=== PATIENT | male | born 1960 | race Caucasian/White ===

== ENCOUNTER 2018-03-10 12:49 | Inpatient (IN) | payer OTHER ==
[2018-03-10 12:52] VITALS: BMI 23.3
--- NOTE | 2018-03-10 15:52 | HP ---
CIWA Score Nausea/Vomitin-Mild Nausea/No Vomiting Muscle Tremors: None Anxiety: 3 Agitation: 1-Slight > Activity Paroxysmal Sweats: No Perspiration Orientation: 0-Oriented Tacttile Disturbances: 0-None Auditory Disturbances: 0-None Visual Disturbances: 0-None Headache: 0-None Present CIWA-Ar Total Score: 5 - Admission Criteria OASAS Guidelines: Admission for Medically Managed Detox: Requires at least one of the followin. CIWA greater than 12 2. Seizures within the past 24 hours 3. Delirium tremens within the past 24 hours 4. Hallucinations within the past 24 hours 5. Acute intervention needed for co occurring medical disorder 6. Acute intervention needed for co occurring psychiatric disorder 7. Severe withdrawal that cannot be handled at a lower level of care (continued vomiting, continued diarrhea, abnormal vital signs) requiring intravenous medication and/or fluids 8. Admission ROS [facility] Allergies/Adverse Reactions: Allergies Allergy/AdvReac Type Severity Reaction Status Date / Time No Known Allergies Allergy Verified 03/10/18 14:57 History of Present Illness: i-stop This report was requested by: Rachael Pool | Reference #: [id number] Others' Prescriptions Patient Name: Oscar King Date: 1960 Address: [address] [place] [address] Sex: Male Rx Written Rx Dispensed Drug Quantity Days Supply Prescriber Name 03/29/2017 03/29/2017 hydrocodone-acetaminophen 5-325 mg tablet 30 5 Bradley Becker MD patient here requesting detox from etoh use , illicit suboxone , reports heroin use in late until ,stopped after detox, was in Methadone [facility] in [facility] and in [place] in the early , highest dose 90 mg left program ,went to detox, stopped after ,1 year ago started illicit Suboxone , currently 1-2 x 8 mg/ day approximately 20 films/ month , latest use this morning . Denies OD , past use IVDA in hands , arms , ankles, no abscess cannabis : age 16 , did not continue cocaine : occasional PCP : stopped several years ago etoh : 1/2 pint/day , and 6-pk beer/day since 2 years ago , first age of use teens , never in detox , this is the patient's first inpatient detox attempt , reports tremors if not drinking , reports drinking in the mornings latest this morning , current JUSTIN 0.031 , denies blackouts when drinking , denies falls , denies driving while intoxicated , past DWI 1997 . tonacco : 1 ppd since age 14 -15, requesting nrt w/ gum and patch PMHX : htn PSHx : undescended testicle age 10 Psych : denies Meds : clonidine , lisinopril did not bring - states had rx " a long time ago " was not taking emds and has accumulated a lot of pills which he is taking sporadically . SHX : lives w/ GF , off the [employer] , legal _ denies current issues ; has 30-yr old son A & W , 1 gk 6 mo old Exam Limitations: No Limitations - Ebola screening Have you traveled outside of the country in the last 21 days: No (N) Have you had contact with anyone from an Ebola affected area: No Have you been sick,other than usual withdrawal symptoms: No Do you have a fever: No - Review of Systems Constitutional: See HPI EENT: reports: Other (reading glasses, myopia) Respiratory: reports: No Symptoms reported Cardiac: reports: No Symptoms Reported GI: reports: Other (reporets acid reflux , in the past took Prilosec) : reports: No Symptoms Reported Musculoskeletal: reports: No Symptoms Reported Integumentary: reports: No Symptoms Reported Neuro: reports: Tremors Endocrine: reports: No Symptoms Reported Psychiatric: reports: Orientated x3, Anxious Patient History - Patient Medical History Hx Asthma: No Hx Chronic Obstructive Pulmonary Disease (COPD): No Hx Cardiac Disorders: No Hx Hypertension: Yes Hx Seizures: No Hx Diabetes: No Hx Gastrointestinal Disorders: Yes (acid reflux) Hx Genitourinary Disorders: No Hx Sexually Transmitted Disorders: No Hx Renal Disease (ESRD): No Hx Depression: No Hx Suicide Attempt: No Hx Schizophrenia: No - Patient Surgical History Past Surgical History: Yes Hx Neurologic Surgery: No Hx Cataract Extraction: No Hx Cardiac Surgery: No Hx Lung Surgery: No Hx Breast Surgery: No Hx Breast Biopsy: No Hx Abdominal Surgery: No Hx Appendectomy: No Hx Cholecystectomy: No Hx Genitourinary Surgery: No Hx Section: No Hx Orthopedic Surgery: No Other Surgical History: undescended tested at age 10 Anesthesia Reaction: No - PPD History Previous Implant?: Yes Documented Results: Negative w/proof Implanted On Prior [facility] Admission?: Yes Date: 11/19/11 Results: 0 mm - Smoking Cessation Smoking history: Current every day smoker Aproximately how many cigarettes per day: 20 Hx Chewing Tobacco Use: No Initiated information on smoking cessation: No - Substances Abused Alcohol-vodka/beer Route: Oral Frequency: Daily Amount used: 1/2-1 pt./1-6 pk. Age of first use: 17 Date of Last Use: 03/10/18 Suboxone Route: SL Amount used: 1-2 strips of 8 mg. Age of first use: 56 Date of Last Use: 03/10/18 Family Disease History - Family Disease History Family Disease History: Other: Father (d. prostate CA 87), Mother (d.sepsis 80's ), Brother (A & W ) Admission Physical Exam [facility] - Vital Signs Vital Signs: Vital Signs - 24 hr 03/10/18 12:50 Temperature 97.7 F Pulse Rate 86 Respiratory 20 Rate Blood Pressure 143/88 - Physical General Appearance: Yes: Mild Distress, Anxious HEENTM: Yes: EOMI, Hearing grossly Normal, Normocephalic, Normal Voice, Pharynx Normal Respiratory: Yes: Chest Non-Tender, Lungs Clear, Normal Breath Sounds Neck: Yes: No masses,lesions,Nodules, Trachea in good position Breast: Yes: Breast Exam Deferred Cardiology: Yes: Regular Rhythm, Regular Rate, S1, S2, Tachycardia Abdominal: Yes: Normal Bowel Sounds, Non Tender, Soft Genitourinary: Yes: Within Normal Limits Back: Yes: Normal Inspection Musculoskeletal: Yes: full range of Motion, Gait Steady Extremities: Yes: Normal Capillary Refill, Normal Range of Motion, Non-Tender Neurological: Yes: Fully Oriented, Motor Strength 5/5 Integumentary: Yes: Normal Color, Dry, Warm - Diagnostic (1) Alcohol intoxication Current Visit: Yes Status: Acute Qualifiers: Complication of substance-induced condition: uncomplicated Qualified Code(s ): F10.920 - Alcohol use, unspecified with intoxication, uncomplicated (2) Nicotine dependence Current Visit: Yes Status: Chronic Qualifiers: Nicotine product type: cigarettes (3) Opioid dependence Current Visit: Yes Status: Acute Qualifiers: Substance use status: uncomplicated Qualified Code(s): F11.20 - Opioid dependence, uncomplicated [facility] Breath Alcohol Content Breath Alcohol Content: 0.031 Urine Drug Screen - Results Drug Screen Negative: No Urine Drug Screen Results: BUP-Suboxone
[2018-03-10] MEDS ORDERED: NICOTINE POLACRILEX 2 MG GUM BUC PRN (16:09)
[2018-03-10] MEDS ORDERED: MAGNESIUM CITRATE 300 ML BOTTLE PO PRN (16:09)
[2018-03-10] MEDS ORDERED: MAGNESIUM HYDROX 2400MG/30ML ORAL SUSPENSION 30 ML CUP PO PRN (16:09)
[2018-03-10] MEDS ORDERED: MENTHOL/PHENOL 1 EACH UD MM PRN (16:09)
[2018-03-10] MEDS ORDERED: hydrOXYzine PAMOATE 25 MG CAPSULE (FP) PO PRN (16:09)
[2018-03-10] MEDS ORDERED: diazePAM 5 MG TABLET PO PRN (16:09)
[2018-03-10] MEDS ORDERED: guaiFENesin/D-METHORPHAN HB 10 ML UNIT-DOSE CUPS PO PRN (16:09)
[2018-03-10] MEDS ORDERED: MAG HYDROX/AL HYDROX/SIMETH 30 ML UNIT-DOSE CUP PO PRN (16:09)
[2018-03-10] MEDS ORDERED: IBUPROFEN 400 MG TABLET (FP) PO PRN (16:09)
[2018-03-10] MEDS ORDERED: P-EPHED 60MG/TRIPROLIDI 2.5MG TABLET PO PRN (16:09)
[2018-03-10] MEDS ORDERED: ACETAMINOPHEN 325 MG TABLET (FP) PO PRN (16:09)
[2018-03-10] MEDS ORDERED: cloNIDine HCL 0.1 MG TABLET PO PRN (16:11)
[2018-03-10] MEDS ORDERED: MELATONIN 5 MG TABLETS PO PRN (22:00)
[2018-03-10] MEDS: THIAMINE HCL 100 MG TABLET (FP) PO SCH (22:19)
[2018-03-10] MEDS: METHOCARBAMOL 500 MG TABLET PO PRN (22:19)
[2018-03-10] MEDS: diazePAM 5 MG TABLET PO SCH (22:19)
[2018-03-11] MEDS: diazePAM 5 MG TABLET PO SCH ×3 (05:48→22:13)
[2018-03-11] MEDS: NICOTINE 7 MG/24 HOURS TOPICAL PATCH TD SCH (09:42)
[2018-03-11] MEDS: PRENATAL VITAMINS W/ FOLIC ACID TABLET (FP) PO SCH (09:43)
[2018-03-11] MEDS: PANTOPRAZOLE 20 MG TABLET (FP) PO SCH (09:43)
[2018-03-11 10:58] LABS: HEMATOCRIT 42.2 % (35.4-49); HEMOGLOBIN 13.6 GM/dL (11.7-16.9); MCH 30.5 pg (25.7-33.7); MCHC 32.3 g/dl (32.0-35.9); MEAN CELL VOLUME 94.3 fl (80-96); PLATELET COUNT 214 K/MM3 (134-434); RBC 4.48 M/mm3 (4.00-5.60)
--- NOTE | 2018-03-11 10:58 | PN ---
[facility] CIWA - CIWA Score Nausea/Vomitin Muscle Tremors: 1-None Visible, but [place] Anxiety: 1-Mildly Anxious Agitation: 1-Slight > Activity Paroxysmal Sweats: 2 Orientation: 0-Oriented Tacttile Disturbances: 2-Mild Itch/Numbness/Burn Auditory Disturbances: 0-None Visual Disturbances: 0-None Headache: 0-None Present CIWA-Ar Total Score: 10 [facility] COWS - Scale Resting Pulse: 0= [place] 80 or Below Sweatin= Chills/Flushing Restless Observation: 1= Difficult to Sit Still Pupil Size: 1= Pupils >than Normal Bone or Joint Aches: 1= Mild Discomfort Runny Nose/ Eye Tearin= Nasal Congestion GI Upset > 30mins: 2= Nausea/Diarrhea Tremor Observation of Outstretched Hands: 1= Tremor [place], Not Seen Yawning Observation: 0= None Anxiety or Irritability: 1=Feels Anxious/Irritable Goose Flesh Skin: 0=Smooth Skin COWS Score: 9 BHS Progress Note (SOAP) Subjective: nausea, sweats, bodyaches Objective: 03/11/18 10:55 Vital Signs Temperature 97.9 F 03/11/18 09:03 Pulse Rate 77 03/11/18 09:03 Respiratory Rate 18 03/11/18 09:03 Blood Pressure 120/68 03/11/18 09:03 O2 Sat by Pulse Oximetry (%) pending labs pt asox3 in nad ambulating Assessment: 03/11/18 10:57 withdrawal sx's Plan: cont. detox increase fluids motrin prn f/up pending labs
[2018-03-11 11:15] LABS: ALBUMIN 3.4 g/dl (3.4-5.0); ALK PHOS 56 U/L (45-117); ANION GAP 7 MMOL/L (8-16); BILIRUBIN,TOTAL 0.3 mg/dL (0.2-1); BLOOD UREA NITROGEN 13 mg/dL (7-18); CALCIUM 9.1 mg/dL (8.5-10.1); CHLORIDE 105 mmol/L (98-107); CO2 26 mmol/L (21-32); CREATININE 0.7 mg/dL (0.55-1.3); GLUCOSE,RANDOM 87 mg/dL (74-106); POTASSIUM 4.3 mmol/L (3.5-5.1); SGOT/AST 15 U/L (15-37); SGPT/ALT 19 U/L (13-61); SODIUM 138 mmol/L (136-145); TOT PROT 6.4 g/dl (6.4-8.2)
[2018-03-11] MEDS: METHOCARBAMOL 500 MG TABLET PO PRN (22:12)
[2018-03-11] MEDS: THIAMINE HCL 100 MG TABLET (FP) PO SCH (22:13)
[2018-03-12] MEDS: diazePAM 5 MG TABLET PO SCH ×2 (10:16→22:09)
[2018-03-12] MEDS: PANTOPRAZOLE 20 MG TABLET (FP) PO SCH (10:16)
[2018-03-12] MEDS: PRENATAL VITAMINS W/ FOLIC ACID TABLET (FP) PO SCH (10:16)
[2018-03-12] MEDS: NICOTINE 7 MG/24 HOURS TOPICAL PATCH TD SCH (10:16)
--- NOTE | 2018-03-12 11:28 | PN ---
[facility] CIWA - CIWA Score Nausea/Vomitin-No Nausea/No Vomiting Muscle Tremors: 3 Anxiety: 2 Agitation: 3 Paroxysmal Sweats: 2 Orientation: 0-Oriented Tacttile Disturbances: 0-None Auditory Disturbances: 0-None Visual Disturbances: 0-None Headache: 0-None Present CIWA-Ar Total Score: 10 S Progress Note (SOAP) Subjective: irritable sweats agitation Objective: 03/12/18 11:27 Vital Signs Temperature 98.1 F 03/12/18 09:54 Pulse Rate 79 03/12/18 09:54 Respiratory Rate 16 03/12/18 09:54 Blood Pressure 137/84 03/12/18 09:54 O2 Sat by Pulse Oximetry (%) Laboratory Tests 03/11/18 03/11/18 03/11/18 07:00 07:00 07:00 WBC 8.0 RBC 4.48 Hgb 13.6 Hct 42.2 MCV 94.3 MCH 30.5 MCHC 32.3 RDW 14.0 Plt Count 214 MPV 8.0 Sodium 138 Potassium 4.3 Chloride 105 Carbon Dioxide 26 Anion Gap 7 L BUN 13 Creatinine 0.7 Creat Clearance w eGFR > 60 Random Glucose 87 Calcium 9.1 Total Bilirubin 0.3 AST 15 ALT 19 Alkaline Phosphatase 56 Total Protein 6.4 Albumin 3.4 RPR Titer Nonreactive aaox3 ambulating no acute distress Assessment: 03/12/18 11:27 withdrawal sx Plan: continue detox increase fluids
[2018-03-12] MEDS: THIAMINE HCL 100 MG TABLET (FP) PO SCH (22:09)
[2018-03-13 09:17] VITALS: BP 142/94; PULSE 81; TEMP 97.5
--- NOTE | 2018-03-13 10:48 | PN ---
[facility] Progress Note (SOAP) Subjective: feeling better today no tremor less sweat sleep better at night social with peers in day room discuss aftercare with staff talking about relocating to [facility] for work opportunities Objective: 03/13/18 10:47 Vital Signs Temperature 97.5 F L 03/13/18 09:16 Pulse Rate 81 03/13/18 09:16 Respiratory Rate 18 03/13/18 09:16 Blood Pressure 142/94 03/13/18 09:16 O2 Sat by Pulse Oximetry (%) Laboratory Last Values WBC 8.0 K/mm3 (4.0-10.0) 03/11/18 07:00 RBC 4.48 M/mm3 (4.00-5.60) 03/11/18 07:00 Hgb 13.6 GM/dL (11.7-16.9) 03/11/18 07:00 Hct 42.2 % (35.4-49) 03/11/18 07:00 MCV 94.3 fl (80-96) 03/11/18 07:00 MCH 30.5 pg (25.7-33.7) 03/11/18 07:00 MCHC 32.3 g/dl (32.0-35.9) 03/11/18 07:00 RDW 14.0 % (11.9-15.9) 03/11/18 07:00 Plt Count 214 K/MM3 (134-434) 03/11/18 07:00 MPV 8.0 fl (7.5-11.1) 03/11/18 07:00 Sodium 138 mmol/L (136-145) 03/11/18 07:00 Potassium 4.3 mmol/L (3.5-5.1) 03/11/18 07:00 Chloride 105 mmol/L (98-107) 03/11/18 07:00 Carbon Dioxide 26 mmol/L (21-32) 03/11/18 07:00 Anion Gap 7 MMOL/L (8-16) L 03/11/18 07:00 BUN 13 mg/dL (7-18) 03/11/18 07:00 Creatinine 0.7 mg/dL (0.55-1.3) 03/11/18 07:00 Creat Clearance w eGFR > 60 (>60) 03/11/18 07:00 Random Glucose 87 mg/dL (74-106) 03/11/18 07:00 Calcium 9.1 mg/dL (8.5-10.1) 03/11/18 07:00 Total Bilirubin 0.3 mg/dL (0.2-1) 03/11/18 07:00 AST 15 U/L (15-37) 03/11/18 07:00 ALT 19 U/L (13-61) 03/11/18 07:00 Alkaline Phosphatase 56 U/L (45-117) 03/11/18 07:00 Total Protein 6.4 g/dl (6.4-8.2) 03/11/18 07:00 Albumin 3.4 g/dl (3.4-5.0) 03/11/18 07:00 RPR Titer Nonreactive (NONREACTIVE) 03/11/18 07:00 lab noted Assessment: 03/13/18 10:47 mild withdrawal sx hypertension Plan: medically supervised detox
--- NOTE | 2018-03-13 10:56 | DS ---
[facility] Detox Discharge Summary Admission Date: 03/10/18 Discharge Date: 03/13/18 - History Present History: Alcohol Dependence Additional Comments: 57 years old male admitted on 03/10/18 for alcohol withdrawal stabilization feeling better after lunch preferred aftercare in the community self help support group follow up with r d internship at [employer] Pertinent Past History: self help community 12 step support group - Physical Exam Results Vital Signs: Vital Signs Temperature 97.5 F L 03/13/18 09:16 Pulse Rate 81 03/13/18 09:16 Respiratory Rate 18 03/13/18 09:16 Blood Pressure 142/94 03/13/18 09:16 O2 Sat by Pulse Oximetry (%) Pertinent Admission Physical Exam Findings: alcohol withdrawal sx Laboratory Last Values WBC 8.0 K/mm3 (4.0-10.0) 03/11/18 07:00 RBC 4.48 M/mm3 (4.00-5.60) 03/11/18 07:00 Hgb 13.6 GM/dL (11.7-16.9) 03/11/18 07:00 Hct 42.2 % (35.4-49) 03/11/18 07:00 MCV 94.3 fl (80-96) 03/11/18 07:00 MCH 30.5 pg (25.7-33.7) 03/11/18 07:00 MCHC 32.3 g/dl (32.0-35.9) 03/11/18 07:00 RDW 14.0 % (11.9-15.9) 03/11/18 07:00 Plt Count 214 K/MM3 (134-434) 03/11/18 07:00 MPV 8.0 fl (7.5-11.1) 03/11/18 07:00 Sodium 138 mmol/L (136-145) 03/11/18 07:00 Potassium 4.3 mmol/L (3.5-5.1) 03/11/18 07:00 Chloride 105 mmol/L (98-107) 03/11/18 07:00 Carbon Dioxide 26 mmol/L (21-32) 03/11/18 07:00 Anion Gap 7 MMOL/L (8-16) L 03/11/18 07:00 BUN 13 mg/dL (7-18) 03/11/18 07:00 Creatinine 0.7 mg/dL (0.55-1.3) 03/11/18 07:00 Creat Clearance w eGFR > 60 (>60) 03/11/18 07:00 Random Glucose 87 mg/dL (74-106) 03/11/18 07:00 Calcium 9.1 mg/dL (8.5-10.1) 03/11/18 07:00 Total Bilirubin 0.3 mg/dL (0.2-1) 03/11/18 07:00 AST 15 U/L (15-37) 03/11/18 07:00 ALT 19 U/L (13-61) 03/11/18 07:00 Alkaline Phosphatase 56 U/L (45-117) 03/11/18 07:00 Total Protein 6.4 g/dl (6.4-8.2) 03/11/18 07:00 Albumin 3.4 g/dl (3.4-5.0) 03/11/18 07:00 RPR Titer Nonreactive (NONREACTIVE) 03/11/18 07:00 lab noted - Treatment Hospital Course: Detox Protocol Followed, Detoxed Safely, Responded well, Discharged Condition Good, Rehab Referral Accepted Patient has Accepted a Rehab Referral to: [facility] - Medication Discharge Medications: Ambulatory Orders Omeprazole Magnesium [Prilosec Otc] 20 mg PO DAILY 03/10/18 Clonidine HCl [Catapres] 0.1 mg PO BID #14 tablet 03/13/18 Lisinopril [Prinivil] 20 mg PO DAILY #14 tablet 03/13/18 - Diagnosis (1) Alcohol dependence with uncomplicated withdrawal Current Visit: Yes Status: Acute (2) Hypertension Current Visit: Yes Status: Chronic Qualifiers: Hypertension type: essential hypertension Qualified Code(s): I10 - Essential (primary) hypertension (3) Nicotine dependence Current Visit: Yes Status: Acute Qualifiers: Nicotine product type: cigarettes Substance use status: in withdrawal Qualified Code(s): F17.213 - Nicotine dependence, cigarettes, with withdrawal - AMA Did Patient Leave Against Medical Advice: No
[2018-03-14] MEDS ORDERED: diazePAM 5 MG TABLET PO SCH (10:00)
== END 2018-03-13 11:12 | disposition home or self-care (01) | DRG 773 ==
LOC: YASAS 12:49 → Y6N 16:24
PROC: HZ2ZZZZ Detoxification Services for Substance Abuse Treatment (ICD-10-PCS; principal; 2018-03-10)
DX: F11.20 Opioid dependence, uncomplicated (principal); F10.230 Alcohol dependence with withdrawal, uncomplicated; F17.213 Nicotine dependence, cigarettes, with withdrawal; I10 Essential (primary) hypertension; K21.9 Gastro-esophageal reflux disease without esophagitis
CPT/HCPCS: 36415; 80053; 85027; 86593; J0735